=== PATIENT | male | born 1955 | race African-American/Black ===

== ENCOUNTER 2022-04-16 22:36 | Emergency (ER) | payer OTHER, MEDICARE ==
[~2022-04-16] VITALS: Ht 177.8 cm; Wt 90.0 kg
[2022-04-16 23:00] VITALS: BP 132/50
[2022-04-17] MEDS ORDERED: IBUP-2029 MT (06:24)
== END 2022-04-17 08:11 | disposition home or self-care (01) ==
LOC: ER 22:36
DX: R51.9 Headache, unspecified (principal)
CPT/HCPCS: 99284